=== PATIENT | male | born 1990 | race Caucasian/White ===

== ENCOUNTER 2017-11-23 19:08 | Emergency (ER) | payer SELFPAY ==
[2017-11-23 19:24] VITALS: BP 132/78
--- NOTE | 2017-11-23 19:28 | UC ---
Lower Extremity/Ankle HPI - HPI Summary HPI Summary: The pt is a 27 y/o male presenting to c/o R toe pain since 6 days ago worsened today. He hit his foot against a dock and suspects a broken toe. The pt moved it back into place, to no relief. The pain rated 2/10 in intensity is aggravated movement and walking. - History of Current Complaint Chief Complaint: UCLowerExtremity Stated Complaint: R FOOT COMPLAINT Time Seen by Provider: 11/23/17 19:20 Hx Obtained From: Patient Onset/Duration: Sudden Onset - 6 days ago, Still Present Severity Currently: Mild Pain Intensity: 2 Pain Scale Used: 0-10 Numeric Aggravating Factor(s): Ambulation, Other - Movement - Allergies/Home Medications Allergies/Adverse Reactions: Allergies Allergy/AdvReac Type Severity Reaction Status Date / Time No Known Allergies Allergy Verified 11/23/17 19:24 Home Medications: Home Medications ALPRAZolam TAB* [Xanax TAB*] 11/23/17 [History] PMH/Surg Hx/FS Hx/Imm Hx - Additional Past Medical History Additional PMH: Denies any MHx of DM, HLD, CA and CA Previously Healthy: No Respiratory History: Asthma - Surgical History Surgical History: Yes Surgery Procedure, Year, and Place: appendix 2015 - Family History Known Family History: Positive: Cardiac Disease - [place], Other - [place], Parkinson's disease - Social History Occupation: Unemployed Lives: Alone Alcohol Use: Weekly Alcohol Amount: 5 to 7 drinks weekly Substance Use Type: None Smoking Status (MU): Never Smoked Tobacco Review of Systems Constitutional: Negative - Fever Musculoskeletal: Other: - Positive: R toe pain All Other Systems Reviewed And Are Negative: Yes Physical Exam - Summary Physical Exam Summary: General: well-appearing, no pain distress Skin: warm, color reflects adequate perfusion, dry Head: normal Eyes: EOMI, INDY ENT: normal Neck: supple, nontender Respiratory: CTA, breath sounds present Cardiovascular: RRR Abdomen: soft, nontender Bowel: present Musculoskeletal: R foot 2nd and 3rd toe have ecchymosis, 2nd and 3rd R toes are tender to palpation worse on the 2nd toe; No open wound Neurological: sensory/motor intact, A&O x3 Psychological: affect/mood appropriate Triage Information Reviewed: Yes Vital Signs: Initial Vital Signs Temp 98.9 F 11/23/17 19:17 Pulse 62 11/23/17 19:17 Resp 16 11/23/17 19:17 BP 132/78 11/23/17 19:17 Pulse Ox 99 11/23/17 19:17 Vital Signs Reviewed: Yes Diagnostics - Radiology R Foot X-Ray Radiology Interpretation Completed By: ED Physician - Oblique non- displaced fracture of the second R proximal phalanx Lower Extremity Course/Dx - Course Course Of Treatment: X-RAY INTERPRETED BY MYSELF. RADIOLOGIST READING PENDING. TREATING FOR 2ND TOE CLOSED, NONDISPLACED FRACTURE. F/U ORTHO. - Differential Dx/Diagnosis Provider Diagnoses: RIGHT SECOND TOE FRACTURE Discharge - Sign-Out/Discharge Documenting (check all that apply): Patient Departure - DC All imaging exams completed and their final reports reviewed: No - The ED physician read the radiology report. RADIOLOGY READING PENDING. - Discharge Plan Condition: Stable Disposition: HOME Patient Education Materials: Toe Fracture (ED) Referrals: Arnulfo Lizama MD [Primary Care Provider] - Randell Hurtado MD [Medical Doctor] - Additional Instructions: FOLLOW UP WITH ORTHOPEDICS. GET RECHECKED FOR ANY WORSENING OF YOUR CONDITION OR QUESTIONS OR CONCERNS. - Billing Disposition and Condition Condition: STABLE Disposition: Home - Attestation Statements Document Initiated by Scribe: Yes Documenting Scribe: Sameera Clayton Provider For Whom Ghada is Documenting (Include Credential): Dr. Shay Baker MD Scribe Attestation: Sameera Valdez , scribed for Dr. Shay Baker MD on 11/23/17 at 2110. Scribe Documentation Reviewed: Yes Provider Attestation: The documentation as recorded by the mayteibSameera chaudhari accurately reflects the service I personally performed and the decisions made by me, Dr. Shay Baker MD
--- NOTE | 2017-11-24 07:49 | RAD ---
HISTORY: RIGHT 2ND AND 3RD TOE INJURY 11/17/17 COMPARISONS: None VIEWS: 3 , Frontal, lateral, and oblique views of the right foot FINDINGS: BONE DENSITY: Normal. BONES: There is an oblique nondisplaced fracture of the proximal phalanx of the second digit. JOINTS: There is no arthropathy. ALIGNMENT: There is no dislocation. SOFT TISSUES: Unremarkable. OTHER FINDINGS: None. IMPRESSION: OBLIQUE NONDISPLACED FRACTURE OF THE PROXIMAL PHALANX OF THE SECOND DIGIT OF THE RIGHT FOOT. R0
--- NOTE | 2017-11-24 10:30 | ED ---
Course/Dx - Course Course Of Treatment: X-RAY INTERPRETED BY MYSELF. RADIOLOGIST READING PENDING. TREATING FOR 2ND TOE CLOSED, NONDISPLACED FRACTURE. F/U ORTHO. Discharge - Sign-Out/Discharge Documenting (check all that apply): Post-Discharge Follow Up All imaging exams completed and their final reports reviewed: Yes - The ED physician read the radiology report. RADIOLOGY READING PENDING. - Discharge Plan Condition: Stable Disposition: HOME Patient Education Materials: Toe Fracture (ED) Referrals: Arnulfo Lizama MD [Primary Care Provider] - Randell Hurtado MD [Medical Doctor] - Additional Instructions: FOLLOW UP WITH ORTHOPEDICS. GET RECHECKED FOR ANY WORSENING OF YOUR CONDITION OR QUESTIONS OR CONCERNS. - Billing Disposition and Condition Condition: STABLE Disposition: Home
== END 2017-11-23 20:08 | disposition home or self-care (01) ==
LOC: UCEAST 19:08
DX: S92.514A Nondisplaced fracture of proximal phalanx of right lesser toe(s), initial encounter for closed fracture (principal); W22.8XXA Striking against or struck by other objects, initial encounter; Y92.9 Unspecified place or not applicable
CPT/HCPCS: 99213; G0463

== ENCOUNTER 2018-12-16 04:28 | Emergency (ER) | payer SELFPAY ==
--- NOTE | 2018-12-16 06:40 | ED ---
Throat Pain/Nasal Congestion - HPI Summary HPI Summary: This patient is a 28-year-old male presenting to the ED with concerns for enlarged uvula. He states he awoke at 3:00 this morning and felt an odd feeling in his throat. When he looked in the [place], he noticed his uvula was enlarged. He is also endorsing erythema to the area. Denies any dysphagia or odynophagia. Denies any difficulty with breathing or airway difficulty. This is never happened to him before. He states he was drinking alcohol last night and is a very heavy snorer. He takes no medications and is otherwise healthy. Symptoms are not worse or better with drinking, eating or cold items. He has not tried any medication [id number] for relief. - History of Current Complaint Chief Complaint: EDThroatPain Time Seen by Provider: 12/16/18 06:03 Hx Obtained From: Patient Onset/Duration: Sudden Onset Severity: Moderate Associated Signs And Symptoms: Positive: Negative - Epiglottits Risk Factors Epiglottis Risk Factors: Negative - Allergies/Home Medications Allergies/Adverse Reactions: Allergies Allergy/AdvReac Type Severity Reaction Status Date / Time No Known Allergies Allergy Verified 12/16/18 04:43 PMH/Surg Hx/FS Hx/Imm Hx Previously Healthy: Yes Respiratory History: Reports: Hx Asthma - Surgical History Surgery Procedure, Year, and Place: appendix 2015 - Immunization History Hx Pertussis Vaccination: No Immunizations Up to Date: Yes Infectious Disease History: No Infectious Disease History: Denies: Traveled Outside the [place] in Last 30 Days - Family History Known Family History: Positive: Cardiac Disease - [place], Other - [place], Parkinson's disease - Social History Occupation: Employed Full-time Lives: With Family Alcohol Use: Weekly Alcohol Amount: 5 to 7 drinks weekly Hx Substance Use: No Substance Use Type: Reports: None Smoking Status (MU): Never Smoked Tobacco Review of Systems Constitutional: Negative Negative: Fever, Chills, Fatigue, Skin Diaphoresis Negative: Palpitations, Chest Pain Negative: Shortness Of Breath, Cough Genitourinary: Negative Positive: no symptoms reported, see HPI Negative: Arthralgia, Myalgia Skin: Negative Neurological: Negative All Other Systems Reviewed And Are Negative: Yes Physical Exam Triage Information Reviewed: Yes Vital Signs On Initial Exam: Initial Vitals Temp Pulse Resp BP Pulse Ox 98.1 F 64 18 138/91 98 12/16/18 04:40 12/16/18 04:40 12/16/18 04:40 12/16/18 04:40 12/16/18 04:40 Vital Signs Reviewed: Yes Appearance: Positive: Well-Appearing, Well-Nourished Skin: Positive: Warm, Skin Color Reflects Adequate Perfusion Head/Face: Positive: Normal Head/Face Inspection Eyes: Positive: EOMI, INDY, Conjunctiva Clear ENT: Positive: Uvula midline, Other - enlarged uvula Neck: Positive: Supple, No Lymphadenopathy Respiratory/Lung Sounds: Positive: Clear to Auscultation, Breath Sounds Present Cardiovascular: Positive: RRR, Pulses are Symmetrical in both Upper and Lower Extremities Musculoskeletal: Positive: Normal, Strength/ROM Intact Neurological: Positive: Speech Normal Psychiatric: Positive: Normal, Affect/Mood Appropriate AVPU Assessment: Alert Diagnostics - Vital Signs Vital Signs Temp Pulse Resp BP Pulse Ox 12/16/18 04:40 98.1 F 64 18 138/91 98 - Laboratory Lab Statement: Any lab studies that have been ordered have been reviewed, and results considered in the medical decision making process. EENT Course/Dx - Course Course Of Treatment: During his course of treatment, the patient's evaluated for enlarged uvula. Patient denies any dysphagia or odynophagia. On physical examination, there is a elongated and enlarged uvula, which is nonobstructing with no airway difficulty. Airway is patent. No erythema or tonsillar exudates bilaterally. No enlarged lymph nodes, no cervical LAD. Patient is having no acute distress or difficulty breathing. He will be diagnosed with uvulitis and is encouraged cold items at this time. Tylenol for any discomfort. He will return or follow up with his PCP if any symptoms become worse. - Diagnoses Provider Diagnoses: Uvulitis Discharge ED - Sign-Out/Discharge Documenting (check all that apply): Patient Departure Patient Received Moderate/Deep Sedation with Procedure: No - Discharge Plan Condition: Stable Disposition: HOME Patient Education Materials: Uvulitis (ED) Referrals: Arnulfo Lizama MD [Primary Care Provider] - Additional Instructions: Drink plenty of fluids/cold liquid This should decrease in size over the next day or so - Billing Disposition and Condition Condition: STABLE Disposition: Home
[2018-12-16 06:41] VITALS: BP 132/88
== END 2018-12-16 06:30 | disposition home or self-care (01) ==
LOC: ED 04:28
DX: K12.2 Cellulitis and abscess of mouth (principal); J45.909 Unspecified asthma, uncomplicated
CPT/HCPCS: 99282